=== PATIENT | male | born 1995 | race American Indian/Alaskan Native ===

== ENCOUNTER 2019-09-20 03:26 | Emergency (ER) | payer SELFPAY ==
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
[2019-09-20] MEDS ORDERED: LIDOCAINE 1%/EPINEPHRINE 1:100,000 VIAL (20 ML) INFILTRATI ONE (04:40)
--- NOTE | 2019-09-20 04:46 | Cat Scan Report ---
CT head/brain wo con INDICATION / CLINICAL INFORMATION: blunt head traum. TECHNIQUE: Axial CT imaging of the brain was obtained without contrast. Coronal and sagittal reformatted imaging obtained and reviewed. All CT scans at this location are performed using CT dose reduction for ALAR A by means of automated exposure control. COMPARISON: None available. FINDINGS: No intracranial hemorrhage, mass, or midline shift is noted. No extra-axial fluid collection or sugge stion of acute territorial infarct. Ventricular system and basilar cisterns are unremarkable. Visualized paranasal sinuses and mastoid air cells are well aerated and clear. Incidental finding of a 7 mm calcification in the left anterior ethmoid air cells most likely osteoma. No calvarial fractur e noted. There is bruising in the scalp region overlying the right parietal bone. IMPRESSION: 1. No acute intracranial abnormality. 2. Mild bruising seen in the scalp region overlying the right parietal bone. Signer Name: Romelia Charles MD Signed: 09/20/2019 4:42 AM Workstation Name: [id number]
[2019-09-20] MEDS ORDERED: LIDOCAINE (1%) 10 MG/1 ML VIAL 20 ML MDV ONE (04:52)
[2019-09-20] MEDS ORDERED: LIDOCAINE (1%) 10 MG/1 ML VIAL 20 ML MDV INFILTRATI ONE (05:07)
[2019-09-20] MEDS ORDERED: cephALEXin 500 MG CAP PO ONE (05:30)
[2019-09-20] MEDS ORDERED: oxyCODONE /ACETAMINOPHEN 5-325MG TAB PO ONE (05:30)
[2019-09-20] MEDS ORDERED: TETANUS,DIPHTHERIA TOXOID ADULT 0.5 ML INJ IM ONE (05:30)
--- NOTE | 2019-09-20 06:05 | XRay Report ---
LEFT KNEE, 2 VIEWS INDICATION / CLINICAL INFORMATION: Knee pain. Trauma COMPARISON: None available. FINDINGS: 2 views of the left knee do not demonstrate fracture, dislocation, or joint effusion. No significant degenerative change. IMPRESSION: Negative exam. Signer Name: Romelia Charles MD Signed: 09/20/2019 6:01 AM Workstation Name: [id number]
[2019-09-20 06:42] VITALS: BP 116/74
== END 2019-09-20 06:35 | disposition home or self-care (01) ==
LOC: ED 03:26
DX: S01.81XA Laceration without foreign body of other part of head, initial encounter (principal); S01.01XA Laceration without foreign body of scalp, initial encounter; F12.10 Cannabis abuse, uncomplicated; X58.XXXA Exposure to other specified factors, initial encounter; Y93.89 Activity, other specified; Y92.89 Other specified places as the place of occurrence of the external cause; Y99.8 Other external cause status
CPT/HCPCS: 70450; 90471; 90714; 96372